=== PATIENT | female | born 1940 | race Caucasian/White ===

== ENCOUNTER 2017-03-29 03:35 | Emergency (ER) | payer MEDICARE, OTHER ==
[2017-03-29 03:44] VITALS: BP 183/92
[2017-03-29] MEDS ORDERED: predniSONE TAB* 20 MG PO ONE (04:13)
--- NOTE | 2017-04-24 01:33 | ED ---
Corbin Mackay Alfonso, scribed for Janee Peck MD on 03/29/17 at 0412 . Complex/Multi-Sys Presentation - HPI Summary HPI Summary: This patient is a 76 year old F presenting to [facility] accompanied by daughter with a chief complaint of a pruritic diffuse rash since yesterday. She was taking Clindamycin for an infected toe. The patient rates the pain 0/10 in severity. Symptoms aggravated and alleviated by nothing. Symptoms not alleviated by Benadryl 25 mg at 0200. Patient denies SOB and swelling. - History Of Current Complaint Chief Complaint: EDAllergicReaction Hx Obtained From: Patient Onset/Duration: Gradual Onset, Lasting Days - 2, Still Present Timing: Constant Severity Currently: Moderate Aggravating Factor(s): nothing Alleviating Factor(s): nothing Associated Signs And Symptoms: Negative: SOB, Edema - Allergies/Home Medications Allergies/Adverse Reactions: Allergies Allergy/AdvReac Type Severity Reaction Status Date / Time Quinine Allergy Rash Verified 03/29/17 03:44 PMH/Surg Hx/FS Hx/Imm Hx Endocrine/Hematology History: Reports: Hx Diabetes - Type 2, Hx Thyroid Disease - HYPOTHYROID Cardiovascular History: Reports: Hx Hypercholesterolemia, Hx Hypertension - on medication Denies: Hx Pacemaker/ICD Respiratory History: Reports: Hx Sleep Apnea - evaluation for 05/2013 Denies: Hx Asthma, Hx Chronic Obstructive Pulmonary Disease (COPD) GI History: Reports: Hx Gastroesophageal Reflux Disease Denies: Hx Ulcer Musculoskeletal History: Reports: Other Musculoskeletal History - complaint of restless legs Sensory History: Reports: Hx Contacts or Glasses Denies: Hx Hearing Aid Opthamlomology History: Reports: Hx Contacts or Glasses Neurological History: Reports: Other Neuro Impairments/Disorders - neurolgia Psychiatric History: Denies: Hx Panic Disorder - Cancer History Cancer Type, Location and Year: BASAL CELL FROM CHEST Hx Chemotherapy: No Hx Radiation Therapy: No - Surgical History Surgery Procedure, Year, and Place: x 2, appendectomy, LEGS VEIN CLEANOUT FOR NEUROPATHY - Immunization History Date of Tetanus Vaccine: utd Date of Influenza Vaccine: none Infectious Disease History: No Infectious Disease History: Denies: Hx Hepatitis, Hx Human Immunodeficiency Virus (HIV), History Other Infectious Disease, Traveled Outside the [place] in Last 30 Days - Family History Known Family History: Negative: Diabetes - Social History Alcohol Use: Rare Hx Substance Use: No Substance Use Type: Reports: None Hx Tobacco Use: No Smoking Status (MU): Former Smoker Length of Time of Smoking/Using Tobacco: 26+ YEARS Have You Smoked in the Last Year: No Review of Systems Negative: Fever Negative: Shortness Of Breath Negative: Edema Positive: Rash All Other Systems Reviewed And Are Negative: Yes Physical Exam - Summary Physical Exam Summary: VITAL SIGNS: Reviewed. GENERAL: Patient is a well-developed and nourished female who is lying comfortable in the stretcher. Patient is not in any acute respiratory distress. HEAD AND FACE: No signs of trauma. No ecchymosis, hematomas or skull depressions. No sinus tenderness. EYES: PERRLA, EOMI x 2, No injected conjunctiva, no nystagmus. EARS: Hearing grossly intact. Ear canals and tympanic membranes are within normal limits. MOUTH: Oropharynx within normal limits. NECK: Supple, trachea is midline, no adenopathy, no JVD, no carotid bruit, no c- spine tenderness, neck with full ROM. CHEST: Symmetric, no tenderness at palpation LUNGS: Clear to auscultation bilaterally. No wheezing or crackles. CVS: Regular rate and rhythm, S1 and S2 present, no murmurs or gallops appreciated. ABDOMEN: Soft, non-tender. No signs of distention. No rebound no guarding, and no masses palpated. Bowel sounds are normal. EXTREMITIES: FROM in all major joints, no edema, no cyanosis or clubbing. NEURO: Alert and oriented x 3. No acute neurological deficits. Speech is normal and follows commands. SKIN: Dry and warm, Vesicular papular rash generalized Triage Information Reviewed: Yes Vital Signs On Initial Exam: Initial Vitals Temp Pulse Resp BP Pulse Ox 97.2 F 86 16 183/92 96 03/29/17 03:35 03/29/17 03:35 03/29/17 03:35 03/29/17 03:35 03/29/17 03:35 Vital Signs Reviewed: Yes - Gillian Coma Scale Coma Scale Total: 15 Diagnostics - Vital Signs Vital Signs Temp Pulse Resp BP Pulse Ox 03/29/17 03:35 97.2 F 86 16 183/92 96 - Laboratory Lab Statement: Any lab studies that have been ordered have been reviewed, and results considered in the medical decision making process. Complex Multi-Symp Course/Dx Assessment/Plan: This patient is a 76 year old F presenting to [facility] accompanied by daughter with a chief complaint of a pruritic diffuse rash since yesterday. She was taking Clindamycin for an infected toe. The patient rates the pain 0/10 in severity. Symptoms aggravated and alleviated by nothing. Symptoms not alleviated by Benadryl 25 mg at 0200. Patient denies SOB and swelling. In the ED course the patient was given Deltasone. Patient will be discharged with prescription for Deltasone and follow up from PCP. The patient is agreeable with this plan. - Diagnoses Provider Diagnoses: Allergic reaction Discharge - Discharge Plan Condition: Stable Disposition: HOME Prescriptions: Prednisone [Deltasone] 40 mg PO DAILY #10 tab Patient Education Materials: General Allergic Reaction (ED) Referrals: Crystal Elder MD [Primary Care Provider] - 3 Days Additional Instructions: Stop taking Clindamycin. Take prednisone as directed. Benadryl as needed for itching. RETURN TO THE EMERGENCY DEPARTMENT FOR CHANGING OR WORSENING SYMPTOMS. The documentation as recorded by the Corbin latif Alfonso accurately reflects the service I personally performed and the decisions made by , Janee Peck MD.
== END 2017-03-29 04:39 | disposition home or self-care (01) ==
LOC: ED 03:35
DX: T78.40XA Allergy, unspecified, initial encounter (principal); X58.XXXA Exposure to other specified factors, initial encounter; Y92.9 Unspecified place or not applicable; E11.9 Type 2 diabetes mellitus without complications; L08.9 Local infection of the skin and subcutaneous tissue, unspecified; Z87.891 Personal history of nicotine dependence; E03.9 Hypothyroidism, unspecified; I10 Essential (primary) hypertension; K21.9 Gastro-esophageal reflux disease without esophagitis
CPT/HCPCS: 99281; J7512

== ENCOUNTER 2019-10-27 16:23 | Inpatient (IN) ==
[2019-10-27] MEDS ORDERED: Enoxaparin 30 MG/0.3 ML SYR(*) SUBCUT SCH (18:00)
[2019-10-27 18:24] LABS: Urine Appearance Cloudy; Urine Bilirubin Negative (Negative); Urine Blood Negative (Negative); Urine Color Amber; Urine Glucose Negative (Negative); Urine Ketones Negative (Negative); Urine Nitrite Negative (Negative); Urine Protein 2+(100 mg/dL) (Negative); Urine Urobilinogen Negative (Negative)
[2019-10-27 18:32] LABS: Urine Bacteria Absent (Absent); Urine Red Blood Cell 1+(3-5/hpf) (Absent); Urine Squamous Epithelial Cell Present (Absent); Urine White Blood Cell 1+(6-10/hpf) (Absent)
[2019-10-27] MEDS: NS 0.9% 1000 ml BAG 1,000 ML IV SCH (19:10)
[2019-10-28] MEDS: NS 0.9% 1000 ml BAG 1,000 ML IV SCH ×2 (05:10→22:41)
[2019-10-28 05:47] LABS: ABS Eosinophils 0.1 10^3/ul (0-0.6); ABS Lymphocytes 1.1 10^3/ul (1.0-4.8); ABS Monocytes 0.8 10^3/ul (0-0.8); Hematocrit 24 % (35-47); Hemoglobin 7.9 g/dL (12.0-16.0); Lymphocyte % 17.5 %; Mean Corpuscular HGB Conc 33 g/dL (31-36); Mean Corpuscular Hemoglobin 35 pg (27-31); Mean Corpuscular Volume 105 fL (80-97); Mean Platelet Volume 6.7 fL (7.4-10.4); Platelet Count 609 10^3/uL (150-450); Red Blood Count 2.29 10^6 /uL (3.70-4.87); Red Cell Distribution Width 16 % (10-15); White Blood Count 6.1 10^3/uL (3.5-10.8)
[2019-10-28 06:00] LABS: INR 1.4 (0.82-1.09)
[2019-10-28 06:07] LABS: ALT 7 U/L (7-52); AST 14 U/L (13-39); Albumin 3.4 g/dL (3.2-5.2); Alkaline Phosphatase 55 U/L (34-104); Anion Gap 7 mmol/L (2-11); BUN/Creatinine Ratio 22.3 (8-20); Blood Urea Nitrogen 33 mg/dL (6-24); CO2 Carbon Dioxide 25 mmol/L (22-32); Calcium 9.1 mg/dL (8.6-10.3); Chloride 106 mmol/L (101-111); EGFR African American 41.4 (>60); EGFR Non-African American 34.2 (>60); Globulin 3.5 g/dL (2-4); Glucose 101 mg/dL (70-100); Potassium 4.6 mmol/L (3.5-5.0); Sodium 138 mmol/L (135-145); Total Protein 6.9 g/dL (6.4-8.9)
[2019-10-28 06:29] LABS: % Iron Saturation 7 % (15-55); Iron 22 ug/dL (50-212); Total Iron Binding Capacity 312 mcg/dL (250-450); Transferrin 223 mg/dL (203-362)
[2019-10-28 06:43] LABS: TSH (Thyroid Stimulating Horm) 0.26 mcIU/mL (0.34-5.60)
[2019-10-28 06:50] LABS: Ferritin 159.6 ng/mL (11-307)
[2019-10-28 06:54] LABS: Folate 11.23 ng/mL (>3.99)
[2019-10-28] MEDS ORDERED: PEG 3000 GI LAVAGE 1 GALLON PO ONE (17:29)
[2019-10-28] MEDS ORDERED: Phytonadione IV (Adult) 10 MG in NS 0.9% 50 ML 50 ML IV ONE (17:30)
[2019-10-29 06:02] LABS: ABS Eosinophils 0.1 10^3/ul (0-0.6); ABS Lymphocytes 1.2 10^3/ul (1.0-4.8); ABS Monocytes 0.7 10^3/ul (0-0.8); Hematocrit 23 % (35-47); Hemoglobin 7.7 g/dL (12.0-16.0); Mean Corpuscular HGB Conc 33 g/dL (31-36); Mean Corpuscular Hemoglobin 35 pg (27-31); Mean Corpuscular Volume 104 fL (80-97); Mean Platelet Volume 6.5 fL (7.4-10.4); Nucleated Red Blood Cells % 0.1; Platelet Count 576 10^3/uL (150-450); Red Blood Count 2.23 10^6 /uL (3.70-4.87); Red Cell Distribution Width 15 % (10-15); White Blood Count 5.4 10^3/uL (3.5-10.8)
[2019-10-29 06:17] LABS: BUN/Creatinine Ratio 20.2 (8-20); Calcium 8.9 mg/dL (8.6-10.3); EGFR African American 53.2 (>60); Potassium 4.3 mmol/L (3.5-5.0)
[2019-10-29 10:22] LABS: Carcinoembryonic Antigen 0.7 ng/mL (0.1-5.0)
[2019-10-29 10:25] LABS: Free T4 1.36 ng/dL (0.61-1.12)
[2019-10-29 11:57] LABS: Hepatitis B Surface Ab Not Immune (Immune); Hepatitis C Antibody Negative (Negative)
[2019-10-29] MEDS: NS 0.9% 1000 ml BAG 1,000 ML IV SCH (12:00)
[2019-10-29] MEDS ORDERED: Midazolam 10 mg/10 ml VIAL 1 mg/ml 10 ml VIAL (10 mg) ONE (14:03)
[2019-10-29] MEDS ORDERED: fentaNYL 100 mcg/2 ml 50 MCG/ML VIAL ONE (14:03)
[2019-10-29] MEDS: oxyCODONE/Acetamin 5/325 mg TAB PO PRN (22:36)
[2019-10-30] MEDS ORDERED: Morphine 2 MG/ML SYRINGE IV ONE (01:40)
[2019-10-30] MEDS: oxyCODONE/Acetamin 5/325 mg TAB PO PRN (05:45)
[2019-10-30] MEDS: NS 0.9% 1000 ml BAG 1,000 ML IV SCH (05:47)
[2019-10-30 06:49] LABS: ABS Eosinophils 0.1 10^3/ul (0-0.6); ABS Lymphocytes 1.1 10^3/ul (1.0-4.8); ABS Monocytes 0.8 10^3/ul (0-0.8); Eosinophil % 1.2 %; Hematocrit 22 % (35-47); Hemoglobin 7.6 g/dL (12.0-16.0); Lymphocyte % 16.8 %; Mean Corpuscular HGB Conc 35 g/dL (31-36); Mean Corpuscular Hemoglobin 36 pg (27-31); Mean Corpuscular Volume 103 fL (80-97); Mean Platelet Volume 6.6 fL (7.4-10.4); Platelet Count 480 10^3/uL (150-450); Red Blood Count 2.13 10^6 /uL (3.70-4.87); Red Cell Distribution Width 16 % (10-15); White Blood Count 6.3 10^3/uL (3.5-10.8)
[2019-10-30] MEDS ORDERED: Iron Sucrose 200 MG in NS 0.9% 100 ml BAG 100 ML IVPB ONE (11:00)
[2019-10-30 15:23] VITALS: BP 134/78
[2019-10-30 17:49] LABS: AFP Tumor Marker 3.3 ng/mL
[2019-11-02 10:39] LABS: Soluble Transferrin Receptor 2.4 mg/L (1.8 - 4.6)
[2019-11-02 15:21] LABS: Hepatitis Be Antibody Negative (Negative); Hepatitis Be Antigen Negative (Negative)
== END 2019-10-30 14:20 | disposition home or self-care (01) | DRG 812 ==
LOC: SSU 16:45 → MED 10-29 12:49
PROVIDERS: ADMIT Internal Medicine Hematology & Oncology; ATTEND Internal Medicine Hematology & Oncology

== ENCOUNTER 2019-11-02 13:06 | Inpatient (IN) ==
[2019-11-02] MEDS ORDERED: Ondansetron 4 mg VIAL 2 MG/ML 2 ml VIAL IV PRN (16:13)
[2019-11-02] MEDS: Enoxaparin 30 MG/0.3 ML SYR(*) SUBCUT SCH (19:32)
[2019-11-02] MEDS: NS 0.9% 1000 ml BAG 1,000 ML IV SCH (19:52)
[2019-11-03 06:51] LABS: ABS Lymphocytes 0.8 10^3/ul (1.0-4.8); ABS Monocytes 0.9 10^3/ul (0-0.8); Eosinophil % 0.6 %; Hematocrit 26 % (35-47); Hemoglobin 9.1 g/dL (12.0-16.0); Lymphocyte % 11.8 %; Mean Corpuscular HGB Conc 35 g/dL (31-36); Mean Corpuscular Hemoglobin 35 pg (27-31); Mean Corpuscular Volume 100 fL (80-97); Mean Platelet Volume 6.9 fL (7.4-10.4); Platelet Count 460 10^3/uL (150-450); Red Blood Count 2.62 10^6 /uL (3.70-4.87); Red Cell Distribution Width 18 % (10-15); White Blood Count 6.8 10^3/uL (3.5-10.8)
[2019-11-03 07:08] LABS: Albumin 3.1 g/dL (3.2-5.2); Albumin/Globulin Ratio 0.9 (1-3); BUN/Creatinine Ratio 20.5 (8-20); Calcium 8.6 mg/dL (8.6-10.3); EGFR Non-African American 28.9 (>60); Globulin 3.3 g/dL (2-4); Potassium 4.4 mmol/L (3.5-5.0); Total Bilirubin 0.5 mg/dL (0.2-1.0); Total Protein 6.4 g/dL (6.4-8.9)
[2019-11-03] MEDS: BIFIDOBACTERIUM INFANTIS 4 MG PO SCH (07:33)
[2019-11-03] MEDS ORDERED: Iron Sucrose 200 MG in NS 0.9% 100 ml BAG 100 ML IVPB ONE (10:30)
[2019-11-03] MEDS: NS 0.9% 1000 ml BAG 1,000 ML IV SCH (11:53)
[2019-11-03] MEDS: Enoxaparin 30 MG/0.3 ML SYR(*) SUBCUT SCH (18:29)
[2019-11-04] MEDS: NS 0.9% 1000 ml BAG 1,000 ML IV SCH ×2 (05:07→22:16)
[2019-11-04 06:52] LABS: ABS Eosinophils 0.1 10^3/ul (0-0.6); ABS Lymphocytes 1.1 10^3/ul (1.0-4.8); ABS Monocytes 0.9 10^3/ul (0-0.8); Eosinophil % 0.8 %; Hematocrit 25 % (35-47); Hemoglobin 8.6 g/dL (12.0-16.0); Lymphocyte % 15.9 %; Mean Corpuscular HGB Conc 34 g/dL (31-36); Mean Corpuscular Hemoglobin 34 pg (27-31); Mean Corpuscular Volume 100 fL (80-97); Mean Platelet Volume 6.8 fL (7.4-10.4); Platelet Count 451 10^3/uL (150-450); Red Blood Count 2.52 10^6 /uL (3.70-4.87); Red Cell Distribution Width 19 % (10-15); White Blood Count 6.9 10^3/uL (3.5-10.8)
[2019-11-04 07:05] LABS: BUN/Creatinine Ratio 19.4 (8-20); Calcium 8.6 mg/dL (8.6-10.3); EGFR African American 36.5 (>60); EGFR Non-African American 30.2 (>60); Potassium 4.4 mmol/L (3.5-5.0)
[2019-11-04] MEDS: BIFIDOBACTERIUM INFANTIS 4 MG PO SCH (11:25)
[2019-11-04] MEDS: Enoxaparin 30 MG/0.3 ML SYR(*) SUBCUT SCH (18:32)
[2019-11-05 06:52] LABS: BUN/Creatinine Ratio 19.7 (8-20); Calcium 8.7 mg/dL (8.6-10.3); EGFR African American 38.7 (>60); EGFR Non-African American 31.9 (>60)
[2019-11-05 10:02] LABS: ABS Eosinophils 0.1 10^3/ul (0-0.6); ABS Monocytes 1.1 10^3/ul (0-0.8); Hematocrit 26 % (35-47); Hemoglobin 8.5 g/dL (12.0-16.0); Lymphocyte % 14.3 %; Mean Corpuscular HGB Conc 34 g/dL (31-36); Mean Corpuscular Hemoglobin 34 pg (27-31); Mean Corpuscular Volume 103 fL (80-97); Platelet Count 461 10^3/uL (150-450); Red Blood Count 2.48 10^6 /uL (3.70-4.87); Red Cell Distribution Width 19 % (10-15); White Blood Count 6.8 10^3/uL (3.5-10.8)
[2019-11-05] MEDS: BIFIDOBACTERIUM INFANTIS 4 MG PO SCH (10:46)
[2019-11-05 11:34] LABS: Albumin 2.9 g/dL (3.2-5.2); Total Bilirubin 0.4 mg/dL (0.2-1.0)
[2019-11-05 11:40] LABS: Total Protein 5.9 g/dL (6.4-8.9)
[2019-11-05] MEDS: Enoxaparin 30 MG/0.3 ML SYR(*) SUBCUT SCH (18:29)
[2019-11-05] MEDS: NS 0.9% 1000 ml BAG 1,000 ML IV SCH (23:06)
[2019-11-06] MEDS: BIFIDOBACTERIUM INFANTIS 4 MG PO SCH (09:57)
[2019-11-06 14:26] VITALS: BP 110/49
== END 2019-11-06 12:35 | disposition home or self-care (01) | DRG 683 ==
LOC: CHOA 13:06 → MED 13:06
PROVIDERS: ADMIT Internal Medicine Hematology & Oncology; ATTEND Internal Medicine Hematology & Oncology

== ENCOUNTER 2019-11-25 11:21 | Inpatient (IN) ==
[2019-11-25 13:01] LABS: ABS Basophils 0.1 10^3/ul (0-0.2); ABS Lymphocytes 0.7 10^3/ul (1.0-4.8); ABS Monocytes 0.8 10^3/ul (0-0.8); Hematocrit 26 % (35-47); Hemoglobin 8.5 g/dL (12.0-16.0); Lymphocyte % 5.8 %; Mean Corpuscular HGB Conc 32 g/dL (31-36); Mean Corpuscular Hemoglobin 34 pg (27-31); Mean Corpuscular Volume 105 fL (80-97); Nucleated Red Blood Cells % 0.2; Platelet Count 563 10^3/uL (150-450); Red Blood Count 2.48 10^6 /uL (3.70-4.87); Red Cell Distribution Width 19 % (10-15); White Blood Count 12.3 10^3/uL (3.5-10.8)
[2019-11-25 13:13] LABS: ALT 13 U/L (7-52); AST 22 U/L (13-39); Albumin 2.8 g/dL (3.2-5.2); Albumin/Globulin Ratio 0.8 (1-3); Alkaline Phosphatase 192 U/L (34-104); BUN/Creatinine Ratio 32.4 (8-20); Blood Urea Nitrogen 47 mg/dL (6-24); CO2 Carbon Dioxide 19 mmol/L (22-32); Calcium 9.5 mg/dL (8.6-10.3); Chloride 101 mmol/L (101-111); EGFR African American 42.4 (>60); Globulin 3.5 g/dL (2-4); Glucose 97 mg/dL (70-100); Sodium 133 mmol/L (135-145); Total Protein 6.3 g/dL (6.4-8.9)
[2019-11-25 13:17] LABS: Anion Gap 13 mmol/L (2-11); Potassium 5.2 mmol/L (3.5-5.0)
[2019-11-25] MEDS ORDERED: Diltiazem IV push/loading dose 5 MG/ML 5 ML vial (25 mg) IV SLOW PU ONE (13:29)
[2019-11-25 15:03] LABS: C Reactive Protein 188.58 mg/L (<8.01)
[2019-11-25] MEDS ORDERED: Iohexol 300 (CONTRAST) 10 ML SDV IV ONE (15:28)
[2019-11-25 15:29] LABS: Troponin I 0.03 ng/mL (<0.03)
[2019-11-25 15:46] LABS: TSH (Thyroid Stimulating Horm) 6.93 mcIU/mL (0.34-5.60)
[2019-11-25 15:47] LABS: Free T4 1.01 ng/dL (0.61-1.12)
[2019-11-25 15:58] LABS: Prealbumin 8 mg/dL (18-38)
[2019-11-25] MEDS ORDERED: NS 0.9% 1000 ml BAG 1,000 ML IV SCH (16:30)
[2019-11-25 20:47] LABS: ABS Lymphocytes 1.2 10^3/ul (1.0-4.8); ABS Monocytes 1.2 10^3/ul (0-0.8); Eosinophil % 0.1 %; Hematocrit 24 % (35-47); Hemoglobin 7.8 g/dL (12.0-16.0); Mean Corpuscular HGB Conc 32 g/dL (31-36); Mean Corpuscular Hemoglobin 34 pg (27-31); Mean Corpuscular Volume 106 fL (80-97); Mean Platelet Volume 6.8 fL (7.4-10.4); Nucleated Red Blood Cells % 0.1; Platelet Count 480 10^3/uL (150-450); Red Blood Count 2.28 10^6 /uL (3.70-4.87); Red Cell Distribution Width 19 % (10-15); White Blood Count 13.2 10^3/uL (3.5-10.8)
[2019-11-25 20:56] LABS: Urine Appearance Cloudy; Urine Bilirubin Negative (Negative); Urine Blood Negative (Negative); Urine Color Yellow; Urine Glucose Negative (Negative); Urine Ketones Negative (Negative); Urine Nitrite Negative (Negative); Urine Protein Negative (Negative); Urine Specific Gravity 1.024 (1.010-1.030); Urine Urobilinogen Negative (Negative)
[2019-11-25 21:28] LABS: EGFR African American 44.1 (>60); EGFR Non-African American 36.5 (>60)
[2019-11-25] MEDS: Heparin DRIP 25,000 UNITS BAG 25,000 UNITS/500 ML BAG IV SCH (21:32)
[2019-11-25] MEDS: Heparin 5000 UNITS/ML 1 mL VIAL IV SCH (21:37)
[2019-11-25 21:53] LABS: Polychromasia 2+
[2019-11-26 07:11] LABS: Hematocrit 25 % (35-47); Hemoglobin 8.2 g/dL (12.0-16.0); Mean Corpuscular HGB Conc 33 g/dL (31-36); Mean Corpuscular Hemoglobin 35 pg (27-31); Mean Corpuscular Volume 106 fL (80-97); Mean Platelet Volume 7.1 fL (7.4-10.4); Platelet Count 518 10^3/uL (150-450); Red Blood Count 2.32 10^6 /uL (3.70-4.87); Red Cell Distribution Width 19 % (10-15); White Blood Count 15.4 10^3/uL (3.5-10.8)
[2019-11-26 07:15] LABS: Albumin 2.6 g/dL (3.2-5.2); Calcium 8.9 mg/dL (8.6-10.3); Magnesium 1.9 mg/dL (1.9-2.7); Total Bilirubin 0.8 mg/dL (0.2-1.0)
[2019-11-26] MEDS ORDERED: NS 0.9% 1000 ml BAG 1,000 ML IV SCH (07:15)
[2019-11-26 07:21] LABS: Albumin/Globulin Ratio 0.8 (1-3); BUN/Creatinine Ratio 34.3 (8-20); EGFR African American 44.1 (>60); EGFR Non-African American 36.5 (>60); Globulin 3.3 g/dL (2-4); Total Protein 5.9 g/dL (6.4-8.9)
[2019-11-26 07:31] LABS: Potassium 5.1 mmol/L (3.5-5.0)
[2019-11-26 07:49] LABS: ABS Basophils 0.1 10^3/ul (0-0.2); ABS Lymphocytes 1.2 10^3/ul (1.0-4.8); ABS Monocytes 1.6 10^3/ul (0-0.8); Eosinophil % 0.2 %; Lymphocyte % 7.7 %; Nucleated Red Blood Cells % 0.2
[2019-11-26] MEDS ORDERED: Aspirin EC 81 mg TAB.EC (enteric coated) PO SCH (09:00)
[2019-11-26] MEDS: Heparin 5000 UNITS/ML 1 mL VIAL IV SCH (10:47)
[2019-11-26] MEDS: Heparin DRIP 25,000 UNITS BAG 25,000 UNITS/500 ML BAG IV SCH (19:10)
[2019-11-27] MEDS: Heparin 5000 UNITS/ML 1 mL VIAL IV SCH ×2 (02:41→17:15)
[2019-11-27 08:46] LABS: EGFR African American 31.6 (>60); EGFR Non-African American 26.1 (>60)
[2019-11-28] MEDS: Heparin DRIP 25,000 UNITS BAG 25,000 UNITS/500 ML BAG IV SCH (02:24)
[2019-11-28 05:52] LABS: Hematocrit 24 % (35-47); Hemoglobin 8.3 g/dL (12.0-16.0); Mean Corpuscular HGB Conc 34 g/dL (31-36); Mean Corpuscular Hemoglobin 37 pg (27-31); Mean Corpuscular Volume 106 fL (80-97); Mean Platelet Volume 6.8 fL (7.4-10.4); Platelet Count 546 10^3/uL (150-450); Red Blood Count 2.27 10^6 /uL (3.70-4.87); Red Cell Distribution Width 20 % (10-15); White Blood Count 15.4 10^3/uL (3.5-10.8)
[2019-11-28 06:01] LABS: Albumin 2.6 g/dL (3.2-5.2); Albumin/Globulin Ratio 0.8 (1-3); BUN/Creatinine Ratio 35.1 (8-20); EGFR Non-African American 26.4 (>60); Globulin 3.3 g/dL (2-4); Total Bilirubin 0.6 mg/dL (0.2-1.0); Total Protein 5.9 g/dL (6.4-8.9)
[2019-11-28 06:02] LABS: Potassium 5.2 mmol/L (3.5-5.0)
[2019-11-28 07:31] LABS: ABS Basophils 0.1 10^3/ul (0-0.2); ABS Lymphocytes 1.2 10^3/ul (1.0-4.8); ABS Monocytes 1.4 10^3/ul (0-0.8); Eosinophil % 0.3 %; Lymphocyte % 7.6 %; Nucleated Red Blood Cells % 0.2
[2019-11-28] MEDS: Heparin 5000 UNITS/ML 1 mL VIAL IV SCH ×2 (22:37)
[2019-11-29] MEDS: Heparin DRIP 25,000 UNITS BAG 25,000 UNITS/500 ML BAG IV SCH (05:57)
[2019-11-30 18:13] LABS: Albumin/Globulin Ratio 0.62; Gamma Globulin 0.9 g/dL (0.6-1.6); Total Protein(PEP) 5.1 g/dL (6.3 - 7.9)
[2019-12-02 08:07] VITALS: BP 107/61
== END 2019-12-02 11:05 | disposition hospice, home (50) | DRG 435 ==
LOC: ED 11:21 → MEDTELE 11:21
PROVIDERS: ADMIT Internal Medicine; ATTEND Internal Medicine Hematology & Oncology